=== PATIENT | female | born 1980 | race Caucasian/White ===

== ENCOUNTER → 2020-11-30 | Outpatient (CLI) | payer BC | END | disposition home or self-care (01) | LOC: RAH 14:59 | PROVIDERS: ATTEND Surgery Surgical Oncology | DX: J34.2 Deviated nasal septum (principal); J32.8 Other chronic sinusitis | CPT/HCPCS: 70486 ==

== ENCOUNTER 2021-03-11 23:46 | Emergency (ER) | payer BC ==
[~2021-03-11] VITALS: Ht 165.1 cm; Wt 81.6 kg
[2021-03-12 00:07] VITALS: BP 131/83
[2021-03-12] MEDS ORDERED: BACITRACIN 28.4 GM OINT TP SCH (00:30)
[2021-03-12] MEDS ORDERED: HYDROCODONE/ACETAMINOPHEN 5/325 MG TAB PO ONE (00:30)
[2021-03-12] MEDS ORDERED: AMOX/CLAV 875/125MG TAB PO ONE (00:30)
[2021-03-12] MEDS ORDERED: AMOX-429 PO (00:47)
== END 2021-03-12 00:57 | disposition home or self-care (01) ==
LOC: EDH 23:46
DX: S61.032A Puncture wound without foreign body of left thumb without damage to nail, initial encounter (principal); S61.052A Open bite of left thumb without damage to nail, initial encounter; W54.0XXA Bitten by dog, initial encounter; Y93.89 Activity, other specified; Y92.89 Other specified places as the place of occurrence of the external cause; Y99.8 Other external cause status
CPT/HCPCS: 73130